=== PATIENT | female | born 1960 | race Caucasian/White ===

== ENCOUNTER 2018-07-01 09:50 | Inpatient (IN) | payer OTHER ==
--- NOTE | 2018-07-01 10:25 | PDOC ---
Attending Attestation - Resident Resident Name: Mary Menjivar - ED Attending Attestation I have performed the following: I have examined & evaluated the patient, The case was reviewed & discussed with the resident, I agree w/resident's findings & plan, Exceptions are as noted - HPI HPI: 07/01/18 11:19 Ms Raghav Baldwin presents to the ER upon the recommendation of her PMD due to abnormal labs Pt was noted to have elevated WBC and platelets She also reports mild weakness No fevers or chills - Physicial Exam PE: 07/01/18 11:20 GENERAL: The patient is in no acute distress. HEAD: Normal EYES: PERRLA, EOMI, sclera anicteric, conjunctiva clear. NECK: Normal range of motion, supple without lymphadenopathy, JVD, or masses. LUNGS: Breath sounds equal, clear to auscultation bilaterally. HEART:Regular rate and rhythm, normal S1 and S2 without murmur, rub or gallop. ABDOMEN: Soft, nontender, normoactive bowel sounds. EXTREMITIES: Normal range of motion, no edema. NEUROLOGICAL: Cranial nerves II through XII grossly intact. Normal speech. No focal neurological deficits. MUSCULOSKELETAL: Back non-tender to palpation, no CVA tenderness SKIN: no petechiae, no bruising, no rash - Medical Decision Making EKG - Sinus rhythm, slightly tachycardiac rate of 101 bpm, axis nml, intervals nml, no st elevations or depressions, t waves upright 07/01/18 11:21 Laboratory Tests 07/01/18 07/01/18 10:30 10:30 WBC 82.1 H* Hgb 11.7 Hct 36.0 Plt Count 1310 H BUN 13 Creatinine 0.6 Labs confirm abn cbc Will place IV, do EKG, do CXR Will admit 07/01/18 11:40 *DC/Admit/Observation/Transfer Diagnosis at time of Disposition: Thrombocytosis Elevated WBC count Qualifiers: Leukocytosis type: unspecified Qualified Code(s): D72.829 - Elevated white blood cell count, unspecified - Discharge Dispostion Condition at time of disposition: Stable Decision to Admit order: Yes - Referrals Referrals: Elaine Suarez MD [Primary Care Provider] - - Patient Instructions - Post Discharge Activity
--- NOTE | 2018-07-01 10:39 | PDOC ---
History of Present Illness - General Chief Complaint: Weakness Stated Complaint: LAB WORK (PCP SENT) History Source: Patient, Primary Care Provider Exam Limitations: No Limitations - History of Present Illness Initial Comments: 07/01/18 10:40 57 YOF with h/o breast cancer (in 2006 with mastectomy), family h/o leukemia ( mother, unknown type), and family h/o RCC (niece) who was directed to the ED by her PCP Dr. Suarez for lab abnormality. Routine labs drawn yesterday resulted with WBC in the 75k range, also PLT in the 1356 range. She has no reported history of this type of abnormality, no known personal h/o leukemia to malignancy other than prior breast CA. The patient herself notes only mild generalized tiredness lately. She has been trying to lose weight with intermittent fasting and has lost about 10 lbs but this was not easy to do. She had one episode last weekend in which she became lightheaded/presyncopal. Otherwise denies any f/c/n/v/d/c, night sweats, swollen lymph nodes, pruritis, skin lesions or other changes, headache, neck pain, back pain, unexplained new lumps/bumps, etc. Dr. Suarez has spoken with Dr. Barton. Past History - Past Medical History Allergies/Adverse Reactions: Allergies Allergy/AdvReac Type Severity Reaction Status Date / Time No Known Allergies Allergy Verified 07/01/18 09:54 Home Medications: Ambulatory Orders Valsartan 0 mg PO DAILY 07/01/18 COPD: No Diabetes: Yes HTN: Yes Other medical history: denies - Immunization History Immunization Up to Date: Yes - Suicide/Smoking/Psychosocial Hx Smoking History: Never smoked Have you smoked in the past 12 months: No Hx Alcohol Use: No Drug/Substance Use Hx: No Review of Systems - Review of Systems Able to Perform ROS?: Yes Comments:: 07/01/18 10:46 GEN: mild tiredness, no fever, chills, night sweats, malaise, or unintentional weight change HEENT: no ear pain, sore throat, vision change, or eye pain CV: mild lightheadedness, no chest pain, palpitations, syncope, or edema RESP: no cough, wheezing, or SOB GI: no abdominal pain, nausea, vomiting, diarrhea, constipation, or white/black/ bloody stool : no dysuria, hematuria, incontinence, retention, bleeding, or discharge MSK: no neck/back pain, muscle weakness/pain, or joint swelling/pain NEURO: no headache, seizure, vertigo, numbness, tingling, or focal weakness PSYCH: no substance use, no behavior change SKIN: no jaundice, no rash ROS otherwise negative except as noted in HPI *Physical Exam - Vital Signs Last Vital Signs Temp Pulse Resp BP Pulse Ox 98.0 F 102 H 20 161/70 99 07/01/18 09:51 07/01/18 09:51 07/01/18 09:51 07/01/18 09:51 07/01/18 09:51 - Physical Exam Comments: 07/01/18 10:49 GENERAL: well-appearing, A/Ox4, no distress, answers questions appropriately, understandably a bit nervous/concerned about lab results HEENT: PERRLA, EOMI, moist mucous membranes NECK/BACK: no midline ttp, no spinal stepoff or deformity, no hematoma, full ROM , neck supple CARDIOVASCULAR: regular rate/rhythm, normal S1S2, no MGR, extremities wwp, no edema LUNGS/RESPIRATORY: no respiratory distress, CTAB GI/ABDOMEN: symmetric [id number], normoactive BS, soft, no ttp, no midline pulsatile masses : no CVA tenderness EXTREMITIES: no muscle atrophy, no acute deformity, no edema SKIN: warm and dry, no pallor, no jaundice, no rash, no bruising, no skin breakdown, no cuts, no lesions NEUROLOGICAL: GCS 15, CN II-XII grossly intact, 5/5 strength proximally and distally, no facial droop Moderate Sedation - Procedure Monitoring Vital Signs: Procedure Monitoring Vital Signs Temperature 98.0 F 07/01/18 09:51 Pulse Rate 102 H 07/01/18 09:51 Respiratory Rate 20 07/01/18 09:51 Blood Pressure 161/70 07/01/18 09:51 O2 Sat by Pulse Oximetry (%) 99 07/01/18 09:51 Heart Score/ECG Review #1 07/01/18 11:23 Sinus tachycardia, rate 101, normal axis and intervals, isolated TWI in III, otherwise no ST-T changes. ED Treatment Course - LABORATORY CBC & Chemistry Diagram: 07/01/18 10:30 07/01/18 10:30 Medical Decision Making - Medical Decision Making 07/01/18 10:45 Pt sent to the ED by their provider for lab abnormality. Initial Vital Signs Temp Pulse Resp BP Pulse Ox 98.0 F 102 H 20 161/70 99 07/01/18 09:51 07/01/18 09:51 07/01/18 09:51 07/01/18 09:51 07/01/18 09:51 Exam: As noted in Physical Exam section. DDX IBNLT: Lab error, leukemia or other malignancy, etc W/U ordered: CBCD, CMP, Coags TX ordered: None at this time Laboratory Tests 07/01/18 07/01/18 10:30 10:30 WBC 82.1 H* RBC 4.10 Hgb 11.7 Hct 36.0 MCV 87.9 MCH 28.5 MCHC 32.4 RDW 16.6 H Plt Count 1310 H MPV 9.2 Absolute Neuts (auto) 62.4 H Neutrophils % 76.1 Lymphocytes % 6.1 L Monocytes % 10.8 H Eosinophils % 3.5 Basophils % 3.5 H Nucleated RBC % 0 Sodium 138 Potassium 4.6 Chloride 107 Carbon Dioxide 23 Anion Gap 9 BUN 13 Creatinine 0.6 Creat Clearance w eGFR > 60 Random Glucose 102 Calcium 9.3 Total Bilirubin 0.3 AST 25 ALT 20 Alkaline Phosphatase 123 H Total Protein 7.0 Albumin 4.1 Marked leukocytosis and thrombocytosis noted. I have a conversation with the patient regarding the results and admission to the hospital. She is amenable to admission after the recommendation is made. I place US-guided PIV and also ordered are CXR, EKG. CXR: Nothing acute. EKG: Nothing acute other than mild tachycardia to 101. Reassessment: The patient is tearful but otherwise no distress. Repeat exam is benign. She is calling family to let them know the plan. I have spoken with Dr. Suarez to inform her of the results. She requests that the patient's admission go to Dr. Barton's team. 07/01/18 12:[address] Barton's group for admission per Dr. Suarez. 07/01/18 13:15 I was mistaken; protocol is to microblog [facility] Admitting. We have sent microblog. 07/01/18 14:00 I have spoken with Sheri Simental and the patient is admitted under Dr. Santizo' s name at her request. Decision to Admit order corrected. *DC/Admit/Observation/Transfer Diagnosis at time of Disposition: Thrombocytosis Elevated WBC count Qualifiers: Leukocytosis type: unspecified Qualified Code(s): D72.829 - Elevated white blood cell count, unspecified - Discharge Dispostion Condition at time of disposition: Stable Decision to Admit order: Yes - Referrals Referrals: Elaine Suarez MD [Primary Care Provider] - - Patient Instructions - Post Discharge Activity
[2018-07-01 10:44] LABS: BASO % 3.5 % (0-2.0); EOS % 3.5 % (0-4.5); HEMOGLOBIN 11.7 GM/dL (10.7-15.3); LYMPH % 6.1 % (8-40); MCH 28.5 pg (25.7-33.7); MCHC 32.4 g/dl (32.0-36.0); MEAN CELL VOLUME 87.9 fl (80-96); MEAN PLT VOLUME 9.2 fl (7.5-11.1); MONO % 10.8 % (3.8-10.2); NEUT % 76.1 % (42.8-82.8); RDW 16.6 % (11.6-15.6)
[2018-07-01 11:16] LABS: PLATELET COUNT 1310 K/MM3 (134-434); WHITE BLOOD COUNT 82.1 K/mm3 (4.0-10.0)
[2018-07-01 11:20] LABS: ALBUMIN 4.1 g/dl (3.4-5.0); ALK PHOS 123 U/L (45-117); ANION GAP 9 MMOL/L (8-16); BILIRUBIN,TOTAL 0.3 mg/dL (0.2-1); BLOOD UREA NITROGEN 13 mg/dL (7-18); CALCIUM 9.3 mg/dL (8.5-10.1); CHLORIDE 107 mmol/L (98-107); CO2 23 mmol/L (21-32); CREATININE 0.6 mg/dL (0.55-1.3); GLUCOSE,RANDOM 102 mg/dL (74-106); POTASSIUM 4.6 mmol/L (3.5-5.1); SGOT/AST 25 U/L (15-37); SGPT/ALT 20 U/L (13-61); SODIUM 138 mmol/L (136-145)
[2018-07-01 13:06] LABS: INR 1.19 (0.83-1.09); PROTHROMBIN TIME (PATIENT) 14.1 SEC (9.7-13.0)
--- NOTE | 2018-07-01 13:25 | EKG ---
Test Reason : Blood Pressure : / mmHG Vent. Rate : 101 BPM Atrial Rate : 101 BPM P-R Int : 126 ms QRS Dur : 084 ms QT Int : 346 ms P-R-T Axes : 045 064 035 degrees QTc Int : 448 ms SINUS TACHYCARDIA OTHERWISE NORMAL ECG WHEN COMPARED WITH ECG OF 01-FEB-2004 18:21, NO SIGNIFICANT CHANGE WAS FOUND Confirmed by GILA JOHNSON MD ([id number]) on 07/01/2018 1:24:59 PM Referred By: Confirmed By:GILA JOHNSON MD
--- NOTE | 2018-07-01 14:00 | HP ---
Admitting History and Physical - Primary Care Physician PCP: Elaine Suarez - Admission Chief Complaint: abnormal lab History of Present Illness: 57 year old female pmh of htn, breast ca s/p lumpectomy, mastectomy w/ reconstruction in 2006 sent over by PCP for abnormal cbc. Pt had routine labs yesterday which showed elevated wbc above 70k and plts. Pt reports feeling more tired over the last few weeks. She also c/o an episode of dizziness that happened 6 days ago which resolved. Pt has been doing intermittent fasting, reports intentional weight loss of 10lbs over 3 months. Otherwise, pt is currently without any complaint. Denies any chest pain, sob, lightheadedness, vision changes, tinnitus, n/v/d, abd pain, dysuria, fever/chills, night sweats, rash, recent medication changes History Source: Patient Limitations to Obtaining History: No Limitations - Past Medical History Cardiovascular: Yes: HTN ...: No Rheumatology: Yes: Other (seasonal allergies) Dermatology: Yes: Melanoma - Past Surgical History Past Surgical History: Yes: Hysterectomy, Mastectomy, Tonsillectomy - Smoking History Smoking history: Never smoked Have you smoked in the past 12 months: No - Alcohol/Substance Use Hx Alcohol Use: No History of Substance Use: reports: None - Social History Usual Living Arrangement: Yes: With Spouse ADL: Independent History of Recent Travel: No Home Medications - Allergies Allergies/Adverse Reactions: Allergies Allergy/AdvReac Type Severity Reaction Status Date / Time No Known Allergies Allergy Verified 07/01/18 09:54 - Home Medications Home Medications: Ambulatory Orders Valsartan 40 mg PO DAILY 07/01/18 Family Disease History - Family Disease History Family Disease History: Diabetes: Father, Heart Disease: Brother, CA: Grandparent (pat GF melanoma 50 /), Mother (leukemia 50 ) Review of Systems Findings/Remarks: as per hpi Physical Examination Vital Signs: Vital Signs Temperature 98.2 F 07/01/18 12:47 Pulse Rate 89 07/01/18 12:47 Respiratory Rate 18 07/01/18 12:47 Blood Pressure 150/73 07/01/18 12:47 O2 Sat by Pulse Oximetry (%) 95 07/01/18 12:47 Constitutional: Yes: Well Nourished, No Distress Cardiovascular: Yes: WNL, Regular Rate and Rhythm. No: Pulse Irregular, Murmur Respiratory: Yes: WNL, Regular, CTA Bilaterally. No: Accessory Muscle Use, Cough, Rales, Rhonchi, SOB, Tachypnea, Wheezes Gastrointestinal: Yes: WNL, Normal Bowel Sounds, Soft. No: Distention, Palpable Mass, Tenderness, Vomiting Renal/: Yes: WNL Musculoskeletal: Yes: WNL Extremities: Yes: WNL Edema: No Neurological: Yes: WNL, Alert, Oriented Psychiatric: Yes: WNL, Alert, Oriented Labs: CBC, BMP 07/01/18 10:30 07/01/18 10:30 Imaging - Results Chest X-ray: Report Reviewed (no acute findings) Ultrasound: Report Reviewed ( Mild hepatomegaly, Echogenic lesion in the right hepatic lobe measuring 1.6 x 1.4 cm, Splenomegaly Small left renal simple cyst measuring 1.3 cm.) MRI: Pending (abdomen/pelvis) Problem List - Problems (1) Leukocytosis Assessment/Plan: wbc 82k, plts 1310 pt asymptomatic case discussed with hematology suspect possible CML allopurinol, IVF defer starting hydroxyurea to heme await all heme work up liver/spleen us- hematomegaly/spenomegaly, echogenic hepatic lesion MRI abd/pelvis ordered hematology following Code(s): D72.829 - ELEVATED WHITE BLOOD CELL COUNT, UNSPECIFIED (2) Thrombocytosis Assessment/Plan: as above Code(s): D47.3 - ESSENTIAL (HEMORRHAGIC) THROMBOCYTHEMIA (3) HTN (hypertension) Assessment/Plan: controlled continue valsartan low na diet Code(s): I10 - ESSENTIAL (PRIMARY) HYPERTENSION Qualifiers: Hypertension type: essential hypertension Qualified Code(s): I10 - Essential (primary) hypertension
[2018-07-01] MEDS: SODIUM CHLORIDE 1,000 ML IV SCH (18:12)
[2018-07-01 18:14] LABS: PLATELET ESTIMATE SIGNIFICANT INCREASE
--- NOTE | 2018-07-01 18:24 | CONSULT ---
Consult Consult Specialty:: Hematolog-Oncology Referred by:: POP Simental Reason for Consultation:: leucocytosis, erythrocytosis - History of Present Illness Chief Complaint: abnormal labs History of Present Illness: 57 yr old woman with hx of breast ca (dx' 11 yrs ago s/p mastectomy with reconstruction), HTN referred by PCP for abnormal labs. She has been feeling tired for past few months but denies any other ROS. Last year all of her labs were normal. denies chest pain, sob, easy bruising or bleeding, visual changes, headache, denies unintentional weightloss, abdominal pain, hematuria, constipation, diarrhea, cough - History Source History Provided By: Patient Limitations to Obtaining History: No Limitations - Past Medical History Cardio/Vascular: Yes: HTN ...: No Heme/Onc: Yes: Cancer (breast cancer) ENT: Yes: Other (seasonal allergies) Dermatology: Yes: Melanoma - Past Surgical History Past Surgical History: Yes: Hysterectomy, Mastectomy, Tonsillectomy - Alcohol/Substance Use Hx Alcohol Use: No History of Substance Use: reports: None - Smoking History Smoking history: Never smoked Have you smoked in the past 12 months: No - Social History ADL: Independent History of Recent Travel: No Home Medications - Allergies Allergies/Adverse Reactions: Allergies Allergy/AdvReac Type Severity Reaction Status Date / Time No Known Allergies Allergy Verified 07/01/18 09:54 - Home Medications Home Medications: Ambulatory Orders Valsartan 40 mg PO DAILY 07/01/18 Family Disease History - Family Disease History Family Disease History: Diabetes: Father, Heart Disease: Brother, CA: Grandparent (pat GF melanoma 50 /), Mother (leukemia 50 ) Review of Systems - Review of Systems Constitutional: reports: Lethargy. denies: Chills, Fever, Loss of Appetite, Unintentional Wgt. Loss Eyes: reports: No Symptoms HENT: reports: No Symptoms Cardiovascular: reports: No Symptoms Respiratory: reports: No Symptoms Gastrointestinal: reports: No Symptoms Breasts: reports: No Symptoms Reported, Breast Implants Musculoskeletal: reports: No Symptoms Integumentary: reports: No Symptoms Neurological: reports: No Symptoms Endocrine: reports: No Symptoms Hematology/Lymphatic: reports: No Symptoms Physical Exam Vital Signs: Vital Signs Temperature 98.6 F 07/01/18 15:12 Pulse Rate 102 H 07/01/18 15:12 Respiratory Rate 20 07/01/18 15:12 Blood Pressure 123/66 07/01/18 15:12 O2 Sat by Pulse Oximetry (%) 99 07/01/18 15:12 Constitutional: Yes: Well Nourished, No Distress, Calm Eyes: Yes: Conjunctiva Clear, EOM Intact HENT: Yes: Atraumatic, Normocephalic Neck: Yes: Supple, Trachea Midline. No: Lymphadenopathy, Thyromegaly Cardiovascular: Yes: Regular Rate and Rhythm, S1, S2 Respiratory: Yes: Regular, CTA Bilaterally Gastrointestinal: Yes: Normal Bowel Sounds, Soft Breast(s): Yes: WNL. No: Skin Changes Musculoskeletal: Yes: WNL Extremities: Yes: WNL Edema: No Neurological: Yes: Alert, Oriented Psychiatric: Yes: Alert, Oriented Labs: CBC, BMP 07/01/18 10:30 07/01/18 10:30 Assessment/Plan 57 yr old woman with a hx of breast cancer and HTN referred to ED by PCP for leucytosis and thrombocytosis. Problem List: HTN leucocytosis & thrombocytosis A/P r/o CML, late vs accelarated given elevated cell lines and peripheral smear appearance, initiate allopurinol 300mg daily to decr uric acid with plan to start hydroxyurea 1gm on Wednesday check uric acid levels and coags trend CBC continuous hydration IVF with NS BRITTA 2, flow, BCR-ABL, von wilibrand screening, FISH, drawn and sent today. may need bmbx
[2018-07-01] MEDS: ALLOPURINOL 300 MG TABLET (FP) PO SCH (19:10)
--- NOTE | 2018-07-01 19:38 | PN ---
Teaching Attending Note Name of Resident: Lino Hauser ATTENDING PHYSICIAN STATEMENT I saw and evaluated the patient. I reviewed the resident's note and discussed the case with the resident. I agree with the resident's findings and plan as documented. ASSESSMENT AND PLAN: 57 y/o patient with no significant PMH other than HTN, was sent in by PMD for leukocytosis/thrombocytosis Patient had an episode of dizziness 2 days ago Also reports fatigue Asymptomatic otherwise Reviewed smear --10-15% blasts/left shift of myeloid series/thrombocytosis Concern for CML ? late chronic vs accelarated phase start allopurinol/IV fluuids will need BMbx will start hydrea once uric acid levels improved check VWD screening f/ow/FISH/cytogenetics/bcr;abl/JAK2 pending ? dasatinib vs nilotinib discussed with patient and in detail
[2018-07-01 20:04] LABS: URIC ACID 6.2 mg/dL (2.6-7.2)
[2018-07-01 20:19] LABS: LDH 579 U/L (84-246)
[2018-07-02 09:54] LABS: HEMATOCRIT 34.2 % (32.4-45.2); HEMOGLOBIN 11.5 GM/dL (10.7-15.3); MCH 29.7 pg (25.7-33.7); MCHC 33.5 g/dl (32.0-36.0); MEAN CELL VOLUME 88.7 fl (80-96); MEAN PLT VOLUME 9.7 fl (7.5-11.1); RBC 3.86 M/mm3 (3.60-5.2); RDW 16.5 % (11.6-15.6)
[2018-07-02 10:00] LABS: PLATELET COUNT 1164 K/MM3 (134-434)
[2018-07-02 10:18] LABS: WHITE BLOOD COUNT 73.4 K/mm3 (4.0-10.0)
[2018-07-02 10:31] LABS: ALBUMIN 3.6 g/dl (3.4-5.0); ALK PHOS 110 U/L (45-117); ANION GAP 10 MMOL/L (8-16); BILIRUBIN,TOTAL 0.3 mg/dL (0.2-1); BLOOD UREA NITROGEN 9 mg/dL (7-18); CALCIUM 8.9 mg/dL (8.5-10.1); CHLORIDE 108 mmol/L (98-107); CO2 22 mmol/L (21-32); CREATININE 0.7 mg/dL (0.55-1.3); GLUCOSE,RANDOM 113 mg/dL (74-106); LDH 470 U/L (84-246); MAGNESIUM 2.1 mg/dL (1.8-2.4); PHOSPHOROUS 4.2 mg/dL (2.5-4.9); POTASSIUM 4.2 mmol/L (3.5-5.1); SGOT/AST 19 U/L (15-37); SGPT/ALT 21 U/L (13-61); SODIUM 140 mmol/L (136-145); TOT PROT 6.3 g/dl (6.4-8.2); URIC ACID 5.2 mg/dL (2.6-7.2)
[2018-07-02] MEDS: ENOXAPARIN NA (PORCINE) 40 MG/0.4 ML DISP.SYRIN SQ SCH (10:33)
[2018-07-02] MEDS: ALLOPURINOL 300 MG TABLET (FP) PO SCH (10:34)
[2018-07-02] MEDS: VALSARTAN 40 MG TABLET (FP) PO SCH (10:34)
[2018-07-02] MEDS: SODIUM CHLORIDE 1,000 ML IV SCH (10:38)
--- NOTE | 2018-07-02 14:09 | PN ---
Physical Exam: SUBJECTIVE: Patient seen and examined. She is anxious and doesn't want to be in the hospital. OBJECTIVE: Vital Signs Period Temp Pulse Resp BP Sys/Collazo Pulse Ox Last 24 Hr 97.4 F-99.3 F 90-102 18-20 123-129/60-69 99 GENERAL: The patient is awake, alert, and fully oriented, in no acute distress. LUNGS: Breath sounds equal, clear to auscultation bilaterally, no wheezes, no crackles, no accessory muscle use. HEART: Regular rate and rhythm, S1, S2 without murmur, rub or gallop. ABDOMEN: Soft, nontender, nondistended, normoactive bowel sounds, no guarding, no rebound, no hepatosplenomegaly, no masses. EXTREMITIES: 2+ pulses, warm, well-perfused, no edema. Laboratory Results - last 24 hr 07/01/18 07/01/18 07/01/18 10:30 10:30 14:30 WBC RBC Hgb Hct MCV MCH MCHC RDW Plt Count MPV Total Counted 100 Neutrophils % (Manual) 43.0 Band Neutrophils % 4.0 Lymphocytes % (Manual) 12.0 Monocytes % (Manual) 2 L Eosinophils % (Manual) 4.0 Basophils % (Manual) 8.0 H* Myelocytes % (Man) 8 H Blast Cells % (Manual) 15 H Metamyelocytes 4 H Differential Comment Platelet Estimate Significant increase PTT (Actin FS) Fibrinogen Sodium 138 Potassium 4.6 Chloride 107 Carbon Dioxide 23 Anion Gap 9 BUN 13 Creatinine 0.6 Creat Clearance w eGFR > 60 Random Glucose 102 Uric Acid 6.2 Calcium 9.3 Phosphorus Magnesium Total Bilirubin 0.3 AST 25 ALT 20 Alkaline Phosphatase 123 H Ammonia 21.70 LD Total 579 H Total Protein 7.0 Albumin 4.1 07/02/18 07/02/18 07/02/18 08:00 08:30 08:30 WBC 73.4 H* RBC 3.86 Hgb 11.5 Hct 34.2 MCV 88.7 MCH 29.7 MCHC 33.5 RDW 16.5 H Plt Count 1164 H MPV 9.7 Total Counted Neutrophils % (Manual) Band Neutrophils % Lymphocytes % (Manual) Monocytes % (Manual) Eosinophils % (Manual) Basophils % (Manual) Myelocytes % (Man) Blast Cells % (Manual) Metamyelocytes Differential Comment Platelet Estimate PTT (Actin FS) 35.5 Fibrinogen Sodium 140 Potassium 4.2 Chloride 108 H Carbon Dioxide 22 Anion Gap 10 BUN 9 Creatinine 0.7 Creat Clearance w eGFR > 60 Random Glucose 113 H Uric Acid 5.2 Calcium 8.9 Phosphorus 4.2 Magnesium 2.1 Total Bilirubin 0.3 AST 19 ALT 21 Alkaline Phosphatase 110 Ammonia LD Total 470 H Total Protein 6.3 L Albumin 3.6 07/02/18 08:30 WBC RBC Hgb Hct MCV MCH MCHC RDW Plt Count MPV Total Counted Neutrophils % (Manual) Band Neutrophils % Lymphocytes % (Manual) Monocytes % (Manual) Eosinophils % (Manual) Basophils % (Manual) Myelocytes % (Man) Blast Cells % (Manual) Metamyelocytes Differential Comment Platelet Estimate PTT (Actin FS) Fibrinogen 335.0 Sodium Potassium Chloride Carbon Dioxide Anion Gap BUN Creatinine Creat Clearance w eGFR Random Glucose Uric Acid Calcium Phosphorus Magnesium Total Bilirubin AST ALT Alkaline Phosphatase Ammonia LD Total Total Protein Albumin Active Medications Generic Name Dose Route Start Last Admin Trade Name Freq PRN Reason Stop Dose Admin Allopurinol 300 mg 07/01/18 17:30 07/02/18 10:34 Zyloprim - PO 300 mg DAILY JULITA Administration Enoxaparin Sodium 40 mg 07/02/18 10:00 07/02/18 10:33 Lovenox - SQ 40 mg DAILY JULITA Administration Sodium Chloride 1,000 mls @ 75 mls/hr 07/01/18 14:15 07/02/18 10:38 Normal Saline - IV 75 mls/hr ASDIR JULITA Administration Valsartan 40 mg 07/02/18 10:00 07/02/18 10:34 Diovan - PO 40 mg DAILY JULITA Administration ASSESSMENT/PLAN: 1. Leukocytosis, thrombocytosis - Suspect CML - work up pending - JAK2, BCR-ABL, flow cytometry, FISH, vonWillibrand - Started on Allopurinol - Continue IV fluid - Plan for Hydrea, bone marrow biopsy 2. HTN - Continue Diovan 3. Breast cancer Visit type - Emergency Visit Emergency Visit: Yes ED Registration Date: 07/01/18 Care time: The patient presented to the Emergency Department on the above date and was hospitalized for further evaluation of their emergent condition. - New Patient This patient is new to me today: Yes Date on this admission: 07/02/18 - Critical Care Critical Care patient: No - Discharge Referral Referred to [facility] No
--- NOTE | 2018-07-02 20:34 | PN ---
Progress Note, Physician Chief Complaint: abnormal labs History of Present Illness: Continues to feel well. No complaints. - Current Medication List Current Medications: Active Medications Allopurinol (Zyloprim -) 300 mg PO DAILY [facility] Last Admin: 07/02/18 10:34 Dose: 300 mg Enoxaparin Sodium (Lovenox -) 40 mg SQ DAILY [facility] Last Admin: 07/02/18 10:33 Dose: 40 mg Sodium Chloride (Normal Saline -) 1,000 mls @ 75 mls/hr IV ASDIR [facility] Last Admin: 07/02/18 10:38 Dose: 75 mls/hr Valsartan (Diovan -) 40 mg PO DAILY [facility] Last Admin: 07/02/18 10:34 Dose: 40 mg - Objective Vital Signs: Vital Signs Temperature 98.6 F 07/02/18 18:55 Pulse Rate 94 H 07/02/18 18:55 Respiratory Rate 19 07/02/18 18:55 Blood Pressure 135/81 07/02/18 18:55 O2 Sat by Pulse Oximetry (%) 97 07/02/18 09:00 Constitutional: Yes: Well Nourished, No Distress, Calm Eyes: Yes: Conjunctiva Clear Neck: Yes: WNL (No palpable LAD), Supple, Trachea Midline Cardiovascular: Yes: WNL, Regular Rate and Rhythm Respiratory: Yes: Regular, CTA Bilaterally Gastrointestinal: Yes: WNL, Soft Musculoskeletal: Yes: WNL Edema: No Labs: CBC, BMP 07/02/18 08:30 07/02/18 08:00 INR, PTT INR 1.19 (0.83-1.09) H 07/01/18 12:00 Fibrinogen 335.0 mg/dL (238-498) 07/02/18 08:30 Assessment/Plan 57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 Found to have WBC, predominantly neutrophils. Remains asymptomatic. Suspected CML. Awaiting BCR-ABL and peripheral flow c/w allopurinol and hydration start hydrea 1000 mg BID Will need bone marrow biopsy next week Monitor daily CBC, coags and tumor lysis labs (uric acid, ldh, renal function, lytes) VW panel pending given thrombocytosis
[2018-07-02] MEDS: HYDROXYUREA 500 MG CAPSULE PO SCH (22:08)
[2018-07-03 07:19] LABS: BASO % 12.4 % (0-2.0); EOS % 4.1 % (0-4.5); HEMATOCRIT 31.7 % (32.4-45.2); LYMPH % 7.5 % (8-40); MCH 28.1 pg (25.7-33.7); MCHC 31.5 g/dl (32.0-36.0); MEAN CELL VOLUME 89.2 fl (80-96); MEAN PLT VOLUME 9.1 fl (7.5-11.1); MONO % 8.2 % (3.8-10.2); NEUT % 67.8 % (42.8-82.8); PLATELET COUNT 956 K/MM3 (134-434); RBC 3.55 M/mm3 (3.60-5.2); RDW 16.6 % (11.6-15.6)
[2018-07-03 07:47] LABS: WHITE BLOOD COUNT 58.9 K/mm3 (4.0-10.0)
[2018-07-03 08:09] LABS: ANION GAP 8 MMOL/L (8-16); BLOOD UREA NITROGEN 8 mg/dL (7-18); CALCIUM 7.9 mg/dL (8.5-10.1); CHLORIDE 115 mmol/L (98-107); CO2 22 mmol/L (21-32); CREATININE 0.6 mg/dL (0.55-1.3); GLUCOSE,RANDOM 101 mg/dL (74-106); LDH 307 U/L (84-246); PHOSPHOROUS 3.6 mg/dL (2.5-4.9); SODIUM 145 mmol/L (136-145)
[2018-07-03] MEDS: ACETAMINOPHEN 325 MG TABLET (FP) PO PRN ×2 (09:25→17:04)
[2018-07-03] MEDS: HYDROXYUREA 500 MG CAPSULE PO SCH ×2 (09:28→21:53)
[2018-07-03] MEDS: VALSARTAN 40 MG TABLET (FP) PO SCH (09:28)
[2018-07-03] MEDS: ALLOPURINOL 300 MG TABLET (FP) PO SCH (09:28)
[2018-07-03] MEDS: ENOXAPARIN NA (PORCINE) 40 MG/0.4 ML DISP.SYRIN SQ SCH (09:28)
[2018-07-03 10:43] LABS: ANISOCYTOSIS 2+; MACROCYTOSIS 1+; OVALOCYTE 1+; PLATELET ESTIMATE INCREASED
[2018-07-03 12:47] VITALS: BMI 26.4
--- NOTE | 2018-07-03 13:07 | PN ---
Physical Exam: SUBJECTIVE: Patient seen and examined. She has no complaints. OBJECTIVE: Vital Signs Period Temp Pulse Resp BP Sys/Collazo Pulse Ox Last 24 Hr 98.2 F-99 F 75-101 18-20 125-135/55-81 97 GENERAL: The patient is awake, alert, and fully oriented, in no acute distress. LUNGS: Breath sounds equal, clear to auscultation bilaterally, no wheezes, no crackles, no accessory muscle use. HEART: Regular rate and rhythm, S1, S2 without murmur, rub or gallop. ABDOMEN: Soft, nontender, nondistended, normoactive bowel sounds, no guarding, no rebound, no hepatosplenomegaly, no masses. EXTREMITIES: 2+ pulses, warm, well-perfused, no edema. Laboratory Results - last 24 hr 07/03/18 07/03/18 06:30 06:30 WBC 58.9 H* RBC 3.55 L Hgb 10.0 L Hct 31.7 L MCV 89.2 MCH 28.1 MCHC 31.5 L RDW 16.6 H Plt Count 956 H MPV 9.1 Absolute Neuts (auto) 40.0 H Neutrophils % 67.8 Neutrophils % (Manual) 45.5 Band Neutrophils % 12.9 Lymphocytes % 7.5 L D Lymphocytes % (Manual) 3.0 L D Monocytes % 8.2 Monocytes % (Manual) 2 L Eosinophils % 4.1 Eosinophils % (Manual) 5.9 H Basophils % 12.4 H* Basophils % (Manual) 6.9 H* Myelocytes % (Man) 8 H Promyelocytes % (Man) 0 Blast Cells % (Manual) 3 H Nucleated RBC % 0 Metamyelocytes 4 H Hypochromia 0 Platelet Estimate Increased Platelet Comment Present Polychromasia 1+ Poikilocytosis 2+ Anisocytosis 2+ Microcytosis 1+ Macrocytosis 1+ Spherocytes 2+ Ovalocytes 1+ Sodium 145 Potassium 4.0 Chloride 115 H Carbon Dioxide 22 Anion Gap 8 BUN 8 Creatinine 0.6 Creat Clearance w eGFR > 60 Random Glucose 101 Uric Acid 4.0 Calcium 7.9 L Phosphorus 3.6 LD Total 307 H Active Medications Generic Name Dose Route Start Last Admin Trade Name Freq PRN Reason Stop Dose Admin Acetaminophen 650 mg 07/03/18 08:48 07/03/18 09:25 Tylenol - PO 650 mg Q4H PRN Administration PAIN Allopurinol 300 mg 07/01/18 17:30 07/03/18 09:28 Zyloprim - PO 300 mg DAILY JULITA Administration Enoxaparin Sodium 40 mg 07/02/18 10:00 07/03/18 09:28 Lovenox - SQ 40 mg DAILY JULITA Administration Hydroxyurea 1,000 mg 07/02/18 20:46 07/03/18 09:28 Hydrea - PO 1,000 mg BID JULITA Administration Sodium Chloride 1,000 mls @ 75 mls/hr 07/01/18 14:15 07/02/18 10:38 Normal Saline - IV 75 mls/hr ASDIR JULITA Administration Valsartan 40 mg 07/02/18 10:00 07/03/18 09:28 Diovan - PO 40 mg DAILY JULITA Administration ASSESSMENT/PLAN: 1. 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 HTN - Continue Diovan 3. Breast cancer Visit type - Emergency Visit Emergency Visit: Yes ED Registration Date: 07/01/18 Care time: The patient presented to the Emergency Department on the above date and was hospitalized for further evaluation of their emergent condition. - New Patient This patient is new to me today: No - Critical Care Critical Care patient: No - Discharge Referral Referred to [facility] Med P.C.: No
[2018-07-03] MEDS: SODIUM CHLORIDE 1,000 ML IV SCH ×2 (13:26→14:15)
--- NOTE | 2018-07-03 22:44 | PN ---
Progress Note, Physician Chief Complaint: abnormal labs History of Present Illness: Continues to feel well. No complaints. Denies fevers, chills night sweats - Current Medication List Current Medications: Active Medications Acetaminophen (Tylenol -) 650 mg PO Q4H PRN PRN Reason: PAIN Last Admin: 07/03/18 17:04 Dose: 650 mg Allopurinol (Zyloprim -) 300 mg PO DAILY [facility] Last Admin: 07/03/18 09:28 Dose: 300 mg Enoxaparin Sodium (Lovenox -) 40 mg SQ DAILY [facility] Last Admin: 07/03/18 09:28 Dose: 40 mg Hydroxyurea (Hydrea -) 1,000 mg PO BID [facility] Last Admin: 07/03/18 21:53 Dose: 1,000 mg Sodium Chloride (Normal Saline -) 1,000 mls @ 75 mls/hr IV ASDIR [facility] Last Admin: 07/03/18 14:15 Dose: Not Given Valsartan (Diovan -) 40 mg PO DAILY [facility] Last Admin: 07/03/18 09:28 Dose: 40 mg - Objective Vital Signs: Vital Signs Temperature 98.3 F 07/03/18 18:00 Pulse Rate 86 07/03/18 18:00 Respiratory Rate 20 07/03/18 18:00 Blood Pressure 137/67 07/03/18 18:00 O2 Sat by Pulse Oximetry (%) 95 07/03/18 10:00 Constitutional: Yes: Well Nourished, No Distress, Calm Eyes: Yes: Conjunctiva Clear Cardiovascular: Yes: Regular Rate and Rhythm Respiratory: Yes: Regular, CTA Bilaterally Gastrointestinal: Yes: WNL, Soft Extremities: Yes: WNL Edema: No Labs: CBC, BMP 07/03/18 06:30 07/03/18 06:30 INR, PTT INR 1.19 (0.83-1.09) H 07/01/18 12:00 Fibrinogen 335.0 mg/dL (238-498) 07/02/18 08:30 Assessment/Plan 57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 Found to have WBC, predominantly neutrophils. Remains asymptomatic. Suspected CML. WBC and plt count trending down on HU Awaiting BCR-ABL and peripheral flow c/w allopurinol and hydration c/w hydrea 1000 mg BID Will need bone marrow biopsy next week Monitor daily CBC, coags and tumor lysis labs (uric acid, ldh, renal function, lytes) VW panel pending given thrombocytosis
[2018-07-04 08:22] LABS: BASO % 13.1 % (0-2.0); EOS % 4.2 % (0-4.5); HEMATOCRIT 32.8 % (32.4-45.2); HEMOGLOBIN 10.4 GM/dL (10.7-15.3); LYMPH % 12.4 % (8-40); MCH 28.1 pg (25.7-33.7); MCHC 31.6 g/dl (32.0-36.0); MEAN CELL VOLUME 89.1 fl (80-96); MEAN PLT VOLUME 9.1 fl (7.5-11.1); MONO % 1.5 % (3.8-10.2); NEUT % 68.8 % (42.8-82.8); PLATELET COUNT 971 K/MM3 (134-434); RBC 3.69 M/mm3 (3.60-5.2); RDW 16.5 % (11.6-15.6)
[2018-07-04 08:32] LABS: WHITE BLOOD COUNT 56.8 K/mm3 (4.0-10.0)
[2018-07-04 08:48] LABS: INR 1.22 (0.83-1.09); PROTHROMBIN TIME (PATIENT) 14.4 SEC (9.7-13.0)
[2018-07-04 09:25] LABS: CO2 22 mmol/L (21-32); CREATININE 0.5 mg/dL (0.55-1.3)
[2018-07-04 09:51] LABS: ANION GAP 8 MMOL/L (8-16); BLOOD UREA NITROGEN 7 mg/dL (7-18); CALCIUM 8.2 mg/dL (8.5-10.1); CHLORIDE 115 mmol/L (98-107); GLUCOSE,RANDOM 84 mg/dL (74-106); LDH 369 U/L (84-246); POTASSIUM 4.2 mmol/L (3.5-5.1); SODIUM 145 mmol/L (136-145); URIC ACID 3.4 mg/dL (2.6-7.2)
[2018-07-04] MEDS: HYDROXYUREA 500 MG CAPSULE PO SCH (10:54)
[2018-07-04] MEDS: ENOXAPARIN NA (PORCINE) 40 MG/0.4 ML DISP.SYRIN SQ SCH (10:54)
[2018-07-04] MEDS: VALSARTAN 40 MG TABLET (FP) PO SCH (10:55)
[2018-07-04] MEDS: ALLOPURINOL 300 MG TABLET (FP) PO SCH (10:55)
[2018-07-04] MEDS: ACETAMINOPHEN 325 MG TABLET (FP) PO PRN (10:56)
[2018-07-04 11:55] LABS: ANISOCYTOSIS 2+; MACROCYTOSIS 0; PLATELET ESTIMATE INCREASED; TEAR DROP CELLS 1+; TOXIC GRANULATION 1+
[2018-07-04] MEDS ORDERED: HYDROXYUREA 500 MG CAPSULE PO SCH (12:38)
--- NOTE | 2018-07-04 12:57 | PN ---
Progress Note, Physician Chief Complaint: Pt sitting in bed in no acute distress. appears sad, wants to go home. informed her we are waiting for hematology MD to round, waiting for flow study results. Pt denies any chest pain, sob, n/v/d - Current Medication List Current Medications: Active Medications Acetaminophen (Tylenol -) 650 mg PO Q4H PRN PRN Reason: PAIN Last Admin: 07/04/18 10:56 Dose: 650 mg Allopurinol (Zyloprim -) 300 mg PO DAILY [facility] Last Admin: 07/04/18 10:55 Dose: 300 mg Enoxaparin Sodium (Lovenox -) 40 mg SQ DAILY [facility] Last Admin: 07/04/18 10:54 Dose: 40 mg Hydroxyurea (Hydrea -) 500 mg PO BID [facility] Sodium Chloride (Normal Saline -) 1,000 mls @ 75 mls/hr IV ASDIR [facility] Last Admin: 07/03/18 14:15 Dose: Not Given Valsartan (Diovan -) 40 mg PO DAILY [facility] Last Admin: 07/04/18 10:55 Dose: 40 mg - Objective Vital Signs: Vital Signs Temperature 99.1 F 07/04/18 09:25 Pulse Rate 96 H 07/04/18 09:25 Respiratory Rate 18 07/04/18 09:25 Blood Pressure 140/73 07/04/18 09:25 O2 Sat by Pulse Oximetry (%) 95 07/04/18 11:00 Constitutional: Yes: Well Nourished, No Distress, Calm Cardiovascular: Yes: WNL, Regular Rate and Rhythm. No: Murmur, Rub Respiratory: Yes: WNL, Regular, CTA Bilaterally. No: Accessory Muscle Use, Tachypnea, Wheezes Gastrointestinal: Yes: WNL, Normal Bowel Sounds, Soft. No: Distention, Tenderness Labs: CBC, BMP 07/04/18 07:15 07/04/18 07:15 INR, PTT INR 1.22 (0.83-1.09) H 07/04/18 07:15 Fibrinogen 335.0 mg/dL (238-498) 07/02/18 08:30 Assessment/Plan (1) Leukocytosis Assessment/Plan: improving pt asymptomatic case discussed with hematology- awaiting flow cytometry bone marrow biopsy next week allopurinol,hydroxyurea hematology following Code(s): D72.829 - ELEVATED WHITE BLOOD CELL COUNT, UNSPECIFIED (2) Thrombocytosis Assessment/Plan: as above Code(s): D47.3 - ESSENTIAL (HEMORRHAGIC) THROMBOCYTHEMIA (3) HTN (hypertension) Assessment/Plan: controlled continue valsartan low na diet Code(s): I10 - ESSENTIAL (PRIMARY) HYPERTENSION Qualifiers: Hypertension type: essential hypertension Qualified Code(s): I10 - Essential (primary) hypertension Dispo: home pending hematology clearance
[2018-07-04] MEDS: SODIUM CHLORIDE 1,000 ML IV SCH (14:00)
[2018-07-04 15:34] VITALS: BP 131/60; PULSE 89; TEMP 98
--- NOTE | 2018-07-04 17:06 | PN ---
Progress Note, Physician Chief Complaint: abnormal labs History of Present Illness: Doing well. No complaints. Wants to go home - Current Medication List Current Medications: Active Medications Acetaminophen (Tylenol -) 650 mg PO Q4H PRN PRN Reason: PAIN Last Admin: 07/04/18 10:56 Dose: 650 mg Allopurinol (Zyloprim -) 300 mg PO DAILY [facility] Last Admin: 07/04/18 10:55 Dose: 300 mg Enoxaparin Sodium (Lovenox -) 40 mg SQ DAILY [facility] Last Admin: 07/04/18 10:54 Dose: 40 mg Hydroxyurea (Hydrea -) 500 mg PO BID [facility] Sodium Chloride (Normal Saline -) 1,000 mls @ 75 mls/hr IV ASDIR [facility] Last Admin: 07/03/18 14:15 Dose: Not Given Valsartan (Diovan -) 40 mg PO DAILY [facility] Last Admin: 07/04/18 10:55 Dose: 40 mg - Objective Vital Signs: Vital Signs Temperature 98.0 F 07/04/18 15:31 Pulse Rate 89 07/04/18 15:31 Respiratory Rate 18 07/04/18 15:31 Blood Pressure 131/60 07/04/18 15:31 O2 Sat by Pulse Oximetry (%) 95 07/04/18 11:00 Constitutional: Yes: Well Nourished, Calm Eyes: Yes: Conjunctiva Clear Cardiovascular: Yes: Regular Rate and Rhythm Respiratory: Yes: CTA Bilaterally Gastrointestinal: Yes: WNL, Normal Bowel Sounds, Soft Labs: CBC, BMP 07/04/18 07:15 07/04/18 07:15 INR, PTT INR 1.22 (0.83-1.09) H 07/04/18 07:15 Fibrinogen 335.0 mg/dL (238-498) 07/02/18 08:30 Assessment/Plan 57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 Found to have WBC, predominantly neutrophils. Remains asymptomatic. Suspected CML. WBC and plt with some improvement on HU and no evidence of TLS Prelim peripheral flow, per discussion with heme path, with 10% blasts, impaired myeloid maturation. Official report pending. Awaiting BCR-ABL, expected on Wednesday Pt is cleared for discharge Will follow-up with Dr. Alma Bertrand on 07/06. picking up script for allopurinol 300 mg daily, HU 500 mg BID, and diovan 40 mg daily (without her usual diuretic). Plan for outpatient bone marrow biopsy
--- NOTE | 2018-07-04 18:17 | DS ---
Physical Examination Vital Signs: Vital Signs Temperature 98.0 F 07/04/18 15:31 Pulse Rate 89 07/04/18 15:31 Respiratory Rate 18 07/04/18 15:31 Blood Pressure 131/60 07/04/18 15:31 O2 Sat by Pulse Oximetry (%) 95 07/04/18 11:00 Labs: CBC, BMP 07/04/18 07:15 07/04/18 07:15 Discharge Summary Reason For Visit: LEUKICYTOSIS,THROMBOCYTOPENIA Current Active Problems Elevated WBC count (Acute) HTN (hypertension) (Acute) Leukocytosis (Acute) Thrombocytosis (Acute) Hospital Course: 57 year old female admitted for evaluation of leukocytosis/thrombocytosis. WBC count at admission 82k, pt asymptomatic. Pt evaluated by hematology, started on allopurinol, hydroxyurea. WBC count improving. Suspected CML. Prelim peripheral flow, per discussion with mirian comer, with 10% blasts, impaired myeloid maturation. Official report pending. Awaiting BCR-ABL, expected on Wednesday Pt is cleared for discharge home by hematology, pt to follow-up with Dr. Alma Bertrand on 07/06. Plan for outpatient bone marrow biopsy. Pt to continue allopurinol, hydroxyurea. continue valsartan w/out diuretic component. 35 minutes spent in discharge planning Condition: Stable - Instructions Diet, Activity, Other Instructions: meds as directed bone marrow biopsy next week, please call Dr. Marquez on 07/06 and f/u Referrals: Elaine Suarez MD [Primary Care Provider] - 1 Week Alma Bertrand MD [Staff Physician] - 1 Week Disposition: HOME - Home Medications Comprehensive Discharge Medication List: Ambulatory Orders Allopurinol [Zyloprim -] 300 mg PO DAILY #30 tablet 07/04/18 Hydroxyurea [Hydrea 500Mg Capsule -] 500 mg PO BID #60 capsule 07/04/18 Valsartan 40 mg PO DAILY #30 tablet 07/04/18
[2018-07-06 12:13] LABS: VON WILLEBRAND ANTIGEN 79 % (50-200)
== END 2018-07-04 18:29 | disposition home or self-care (01) | DRG 816 ==
LOC: JER 09:50 → JERBED 11:30 → J5S 19:21 → UNDODISIN 07-04 16:20
PROVIDERS: ADMIT Internal Medicine; ATTEND Nurse Practitioner Family
DX: D47.3 Essential (hemorrhagic) thrombocythemia (principal); D72.829 Elevated white blood cell count, unspecified; I10 Essential (primary) hypertension; Z85.3 Personal history of malignant neoplasm of breast
CPT/HCPCS: 36415; 71046-TC-FY; 76700-TC; 80048; 80053; 82140; 83615; 83735; 84100; 84550; 85025; 85027; 85240; 85246; 85247; 85384; 85610; 85730; 87040; 88300-TC; 93005; 93010; 99284-25; J7030; J8999